=== PATIENT | female | born 2000 | race Two or more races ===

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

== ENCOUNTER → 2021-07-17 | Outpatient (CLI) | payer BC ==
--- NOTE | 2021-07-17 08:29 | US ---
EXAMINATION TYPE: US thyroid st tissue head/neck DATE OF EXAM: 07/17/2021 COMPARISON: NONE CLINICAL HISTORY: E04.9 Goiter. Neck swelling GLAND SIZE: Right Lobe: 4.5 x 1.3 x 1.5 cm Overall Parenchyma: homogenous Left Lobe: 4.0 x 1.1 x 1.4 cm Overall Parenchyma: homogeneous Isthmus Thickness: 0.2 cm NODULES RIGHT: # of nodules measured on right: 0 LEFT: # of nodules measured on left: 0 ISTHMUS: # of nodules measured in the isthmus: 0 Bilateral neck scanned, no evidence of lymphadenopathy. IMPRESSION: No distinct abnormality identified.
--- NOTE | 2021-07-17 08:33 | US ---
EXAMINATION TYPE: US abdomen complete DATE OF EXAM: 07/17/2021 COMPARISON: NONE CLINICAL HISTORY: R10.84 GENERALIZED ABD PAIN. Intermittent lower abdomen pain and N/V x couple month s EXAM MEASUREMENTS: Liver Length: 14.5 cm Gallbladder Wall: 0.2 cm CBD: 0.3 cm Spleen: 9.1 cm Right Kidney: 9.2 x 4.0 x 4.6 cm Left Kidney: 9.6 x 5.6 x 4.6 cm Pancreas: visualized portions wnl, limited by overlying midline bowel gas Liver: wnl Gallbladder: wnl Evidence for sonographic Mcgowan's sign: no CBD: visualized portions wnl, limited by overlying bowel gas Spleen: wnl Right Kidney: wnl Left Kidney: visualized portions wnl, limited by overlying bowel gas Upper IVC: wnl Abd Aorta: wnl The liver is homogenous. The intrahepatic portion of the IVC and proximal abdominal aorta are within normal limits. There is no evidence of cholelithiasis. Common bile duct is unremarkable. The visu alized portions of the pancreas are homogenous. The spleen is unremarkable. Kidneys are symmetric a nd free of hydronephrosis. No renal lesions are seen. IMPRESSION: No discrete abnormality appreciated.
== END | disposition home or self-care (01) ==
LOC: RADUSWWP 07:09
PROVIDERS: ATTEND Family Medicine
DX: E04.9 Nontoxic goiter, unspecified (principal); R10.84 Generalized abdominal pain; R10.30 Lower abdominal pain, unspecified
CPT/HCPCS: 76536; 76700

== ENCOUNTER 2022-07-05 18:03 | Inpatient (IN) | payer BC, OTHER ==
[2022-07-05] MEDS ORDERED: LIDOCAINE 0.5% (PF) 5 MG/ML (50 ML SDV) SQ PRN (18:43)
[2022-07-05] MEDS ORDERED: METHYLERGONOVINE 0.2 MG/ML 1 ML AMP IM PRN (18:43)
[2022-07-05] MEDS ORDERED: CARBOPROST TROMETHAMINE 250 MCG/ML 1 ML AMP IM PRN (18:43)
[2022-07-05] MEDS ORDERED: OXYTOCIN 10 UNIT/ML 1 ML VIAL IM PRN (18:43)
[2022-07-05] MEDS ORDERED: TERBUTALINE 1 MG/ML VIAL SQ PRN (18:43)
[2022-07-05] MEDS ORDERED: BUTORPHANOL 1 MG/ML 1 ML VIAL IV PRN (18:44)
[2022-07-05] MEDS: LACTATED RINGERS 1,000 ML IV SCH ×2 (19:44→22:54)
[2022-07-05 20:04] LABS: Basophils # (A) 0.1 k/uL (0-0.2); Basophils % (A) 1 %; Eosinophils # (A) 0.1 k/uL (0-0.7); Eosinophils % (A) 1 %; HCT 41.1 % (34.0-46.0); Lymphocytes # (A) 1.9 k/uL (1.0-4.8); Lymphocytes % (A) 25 %; MCH 32.4 pg (25.0-35.0); MCHC 34.1 g/dL (31.0-37.0); MCV 94.9 fL (80.0-100.0); Monocytes # (A) 0.4 k/uL (0-1.0); Monocytes % (A) 5 %; Neutrophils # (A) 5.2 k/uL (1.3-7.7); Neutrophils % (A) 67 %; Platelet Count 206 k/uL (150-450); RBC 4.33 m/uL (3.80-5.40); RDW 12.6 % (11.5-15.5); WBC 7.9 k/uL (3.8-10.6)
[2022-07-06] MEDS: LACTATED RINGERS 1,000 ML IV SCH (00:44)
--- NOTE | 2022-07-06 02:27 | P.HPOB ---
History of Present Illness H&P Date: 07/06/22 Chief Complaint: My water broke at home This is a 22-year-old female 1 para 0 EDC 07/07/2022 at 39-6/7 weeks' gestation. Patient presented with her water breaking left-sided home, clear fluid. Fetus is been active throughout the . She denies vaginal bleed ing. Past medical history significant for PCO OS. Past surgical history muscle biopsy, appendectomy. Current medications vitamins daily, baby aspirin daily. ALLERGIES none known. Family history significant for breast cancer. Social history patient has never been a smoker, she is , she is employed, former marijuana smoker, denies alcohol or tobacco use. history blood type is O+, rubella status immune. VDRL testing, hepatitis B surface antigen, HIV testing, urine culture, gonorrhea and chlamydia cultures, group B strep cultures all negative. A one-hour Glucola 107. On exam patient is 5 foot 2 inches, 146 pounds, blood pressure 126/88 on admission. The general physical exam is within normal limits. Patient was 1 cm on admission, currently completely dilated. heart tones are consistent with reactive NST. Uterine contractions are occurring every 2 minutes apart and an epidural has been placed per her request. Impression: 39-6/7 weeks intrauterine , active labor, all signs reassuring. Plan: Continue close maternal and surveillance. Anticipate normal spontaneous vaginal delivery. Past Medical History Additional Past Medical History / Comment(s): small leak in one of heart valves History of Any Multi-Drug Resistant Organisms: None Reported Past Surgical History: Appendectomy Additional Past Surgical History / Comment(s): Muscle biopsy in right thigh Past Anesthesia/Blood Transfusion Reactions: No Reported Reaction Additional Past Anesthesia/Blood Transfusion Reaction / Comment(s): has never had anesthesia Past Psychological History: No Psychological Hx Reported Smoking Status: Never smoker Past Alcohol Use History: None Reported Past Drug Use History: None Reported - Past Family History Mother Family Medical History: No Reported History Medications and Allergies Home Medications Medication Instructions Recorded Confirmed Type Aspirin [Adult Low Dose Aspirin EC] 81 mg PO DAILY 06/15/22 07/05/22 History Vit No.179/Iron/Folic 1 tab PO DAILY 06/15/22 07/05/22 History [ Tablet] Allergies Allergy/AdvReac Type Severity Reaction Status Date / Time No Known Allergies Allergy Verified 07/05/22 20:44 Exam Vital Signs Temp Pulse Resp BP Pulse Ox 07/05/22 18:07 97.0 F L 93 18 126/85 98 Intake and Output 07/05/22 07/05/22 07/06/22 14:59 22:59 06:59 Other: # Voids 1 Weight 66.224 kg See dictation under HPI please Results Result Diagrams: 07/05/22 19:45 Assessment and Plan Assessment: 39-6/7 weeks intrauterine , active labor. All signs reassuring. Plan: Continue close maternal and surveillance. Anticipate normal spontaneous vaginal delivery. Time with Patient: Less than 30
[2022-07-06] MEDS ORDERED: OXYTOCIN 30 UNITS/500 ML NS 30 UNIT in SALINE 1 500ML.BAG IV SCH (02:47)
[2022-07-06] MEDS ORDERED: diphenhydrAMINE 50 MG/ML 1 ML VIAL IVP PRN ×2 (03:07)
[2022-07-06] MEDS ORDERED: LANOLIN CREAM 5 GM TUBE TOPICAL PRN (03:07)
[2022-07-06] MEDS ORDERED: diphenhydrAMINE 50 MG CAP PO PRN (03:07)
[2022-07-06] MEDS ORDERED: ZOLPIDEM 5 MG TAB PO PRN (03:07)
[2022-07-06] MEDS ORDERED: HYDROCORTISONE 2.5% RECTAL CREAM 30 GM TUBE RECTAL PRN (03:07)
[2022-07-06] MEDS ORDERED: SIMETHICONE 80 MG CHEWABLE PO PRN (03:07)
[2022-07-06] MEDS ORDERED: BENZOCAINE/MENTHOL SPRAY 1 GM/SPRAY AEROSOL TOPICAL PRN (03:07)
[2022-07-06] MEDS ORDERED: diphenhydrAMINE 25 MG CAP PO PRN (03:07)
--- NOTE | 2022-07-06 03:07 | P.PROBDLV ---
Vaginal Delivery Note - . Vaginal Delivery Note: This is a 22-year-old 1 para 0 EDC 07/07/2022 at 39-6/7 weeks' gestation. Patient presented with spontaneous amniorrhexis which occurred at home, clear fluid. Fetus has been active throughout the . Please see dictated history and physical for details. Epidural was placed per her request. She progressed well through the first stage of labor, heart tones were reassuring throughout. Patient was judged to be completely dilated at 0151 hours and began the second stage of labor at that time. Ultimately the perineal body was prepped and draped in the usual sterile fashion. 's head delivered occiput anterior and he restituted accordingly. There was a nuchal cord 1 that was reduced on the perineal body. The left or anterior shoulder was gently delivered from underneath the pubic symphysis at which time the oropharynx, nasopharynx, and external nares were all bulb suctioned. Patient was officially delivered of a liveborn male infant at 0247 hours. Umbilical cord was doubly clamped and ligated, he was handed to waiting nurses for evaluation where scores of 8 and 9 at one and 5 minutes respectively were given. The placenta delivered spontaneously, it was inspected and noted to be intact with trivascular cord at 0252 hours. At this time the perineal body was redraped and the uterus was massaged. Careful inspection of the cervix, vagina, perineum, periurethral, and perirectal areas revealed a small first-degree perineal laceration. This was easily repaired in the usual fashion using 3-0 repeat suture. Excellent reapproximation was noted. Fundus is firm and in the midline, symmetric and 18 week size upon completion of delivery. Infant weighs 3185 g or 7 lbs. 0 oz. All sponge needle and instrument counts are correct. Patient is allowed to begin the bonding experience in the LDR. She is requesting circumcision for her infant son
[2022-07-06] MEDS ORDERED: ROPIVACAINE 100 MG, fentaNYL (PF). 200 MCG in SODIUM CHLORIDE 0.9% 76 ML EPIDURAL ONE (08:41)
[2022-07-06] MEDS: SENNOSIDES-DOCUSATE SODIUM 1 EACH TAB PO SCH ×2 (08:56→19:53)
[2022-07-06] MEDS: ACETAMINOPHEN TAB 325 MG TAB PO PRN ×3 (08:57→21:08)
[2022-07-06] MEDS: IBUPROFEN 600 MG TAB PO SCH ×3 (09:00→17:58)
[2022-07-07] MEDS: IBUPROFEN 600 MG TAB PO SCH (00:05)
[2022-07-07 07:02] LABS: Basophils # (A) 0.1 k/uL (0-0.2); Basophils % (A) 1 %; Eosinophils # (A) 0.1 k/uL (0-0.7); Eosinophils % (A) 2 %; HCT 38.3 % (34.0-46.0); HGB 13.1 gm/dL (11.4-16.0); Lymphocytes # (A) 2.6 k/uL (1.0-4.8); Lymphocytes % (A) 32 %; MCH 32.6 pg (25.0-35.0); MCHC 34.1 g/dL (31.0-37.0); MCV 95.6 fL (80.0-100.0); Mean Platelet Volume 8.6; Monocytes # (A) 0.3 k/uL (0-1.0); Monocytes % (A) 4 %; Neutrophils # (A) 4.8 k/uL (1.3-7.7); Neutrophils % (A) 59 %; Platelet Count 186 k/uL (150-450); RBC 4.01 m/uL (3.80-5.40); RDW 12.6 % (11.5-15.5); WBC 8.1 k/uL (3.8-10.6)
[2022-07-07 08:00] VITALS: BP 131/88; PULSE 84; RESP 16; TEMP 98.4
[2022-07-07] MEDS: SENNOSIDES-DOCUSATE SODIUM 1 EACH TAB PO SCH (08:10)
--- NOTE | 2022-07-07 09:09 | P.DS ---
Providers Date of admission: 07/05/22 18:49 Expected date of discharge: 07/07/22 Attending physician: Leela Moses Primary care physician: Stated None - Discharge Diagnosis(es) (1) Term Current Visit: Yes Status: Acute (2) SROM (spontaneous rupture of membranes) Current Visit: Yes Status: Acute (3) Active labor at term Current Visit: Yes Status: Acute Hospital Course: this is a 22-year-old 1 now para 1 that presented to labor and delivery at 39-6/7 weeks with complaints of spontaneous rupture of membranes. Patient noted fluid to be clear in nature. Patient has been receiving routine care which is been essentially uncomplicated. Infant did have a dilated renal pelvis, with testing be normal in nature. Multiple ultrasounds revealed good growth and no increase of the dilation. Patient was admitted to labor and delivery and progressed through labor eventually getting an epidural. Patient progressed to complete began pushing and had a normal spontaneous vaginal delivery of a viable male . weighing 7 lbs. 0 oz. Patient did sustain a small first-degree vaginal laceration which was repaired in the usual fashion with 3-0 Rapide. Patient has done well . On this day #1 she is ambulating and voiding without difficulty. She is tolerating a regular diet without nausea or vomiting. She states her pain is well-controlled. Her lochia is moderate. She is breast-feeding. She would like discharge home. Patient Condition at Discharge: Good Plan - Discharge Summary New Discharge Prescriptions: No Action Vit No.179/Iron/Folic [ Tablet] 1 tab PO DAILY Aspirin [Adult Low Dose Aspirin EC] 81 mg PO DAILY Discharge Medication List Aspirin [Adult Low Dose Aspirin EC] 81 mg PO DAILY 06/15/22 [History] Vit No.179/Iron/Folic [ Tablet] 1 tab PO DAILY 06/15/22 [History] Follow up Appointment(s)/Referral(s): Leela Moses DO [Doctor of Osteopathic Medicine] - 4 Weeks Patient Instructions/Handouts: Vaginal Delivery (DC), Vaginal Delivery (GEN) Activity/Diet/Wound Care/Special Instructions: patient expect moderate vaginal bleeding . [id number] ibuprofen 600 mg as needed for pain. Patient is to schedule a routine follow- up at 4 weeks . Should she have any concerns prior to this she is urged to call the office. She is counseled that no tub baths swimming or intercourse for 6 weeks . Discharge Disposition: HOME SELF-CARE
== END 2022-07-07 14:10 | disposition home or self-care (01) | DRG 807 ==
LOC: FBPOP 18:03 → 4FBP 18:49
PROVIDERS: ADMIT Obstetrics & Gynecology; ATTEND Obstetrics & Gynecology Obstetrics
PROC: 10E0XZZ Delivery of Products of Conception, External Approach (ICD-10-PCS; principal; 2022-07-06)
PROC: 0HQ9XZZ Repair Perineum Skin, External Approach (ICD-10-PCS; 2022-07-06)
PROC: 4A0HXCZ Measurement of Products of Conception, Cardiac Rate, External Approach (ICD-10-PCS; 2022-07-06)
DX: O42.92 Full-term premature rupture of membranes, unspecified as to length of time between rupture and onset of labor (principal); Z37.0 Single live birth; O69.81X0 Labor and delivery complicated by cord around neck, without compression, not applicable or unspecified; O99.284 Endocrine, nutritional and metabolic diseases complicating childbirth; E28.2 Polycystic ovarian syndrome; O70.0 First degree perineal laceration during delivery; Z3A.39 39 weeks gestation of pregnancy; Z79.82 Long term (current) use of aspirin; Z86.59 Personal history of other mental and behavioral disorders
CPT/HCPCS: 59025; 84112; 85025; 86850; 86900; 86901; 99213

== ENCOUNTER 2022-07-11 19:31 | Emergency (ER) | payer BC, OTHER ==
[2022-07-11 19:48] VITALS: TEMP 98
[2022-07-11] MEDS ORDERED: diphenhydrAMINE 50 MG/ML 1 ML VIAL IVP STA (20:08)
[2022-07-11] MEDS ORDERED: KETOROLAC 15 MG/ML 1 ML VIAL IVP STA (20:08)
[2022-07-11] MEDS ORDERED: SODIUM CHLORIDE 0.9% 1,000 ML IV STA (20:08)
[2022-07-11] MEDS ORDERED: METOCLOPRAMIDE 5 MG/ML 2 ML VIAL IVP STA ×2 (20:08→20:48)
[2022-07-11] MEDS ORDERED: CAFFEINE-SODIUM BENZOATE 500 MG in SODIUM CHLORIDE 0.9% 1,000 ML IVPB ONE (21:11)
--- NOTE | 2022-07-11 22:12 | ED ---
General Adult HPI - General Chief complaint: Headache Stated complaint: abn labs Time Seen by Provider: 07/11/22 19:55 Source: patient Mode of arrival: ambulatory Limitations: no limitations - History of Present Illness Initial comments: Patient is a 22-year-old female who presents to the emergency department with a chief complaint of headache. Patient had vaginal delivery on 07/06 Dr. Moses. Delivery went well without complication. Patient states she had an epidural during delivery. Since delivery she has endorsed a headache which ranges in severity. States laying down improves her pain. Has been taking Excedrin with some relief. Denies fever, chills, abdominal pain, nausea, vomiting. Denies history of migraines. - Related Data Home Medications Medication Instructions Recorded Confirmed Aspirin [Adult Low Dose Aspirin EC] 81 mg PO DAILY 06/15/22 07/05/22 Vit No.179/Iron/Folic 1 tab PO DAILY 06/15/22 07/05/22 [ Tablet] Allergies Allergy/AdvReac Type Severity Reaction Status Date / Time No Known Allergies Allergy Verified 07/11/22 19:48 Review of Systems ROS Statement: Those systems with pertinent positive or pertinent negative responses have been documented in the HPI. ROS Other: All systems not noted in ROS Statement are negative. Past Medical History Additional Past Medical History / Comment(s): small leak in one of heart valves History of Any Multi-Drug Resistant Organisms: None Reported Past Surgical History: Appendectomy Additional Past Surgical History / Comment(s): Muscle biopsy in right thigh Past Anesthesia/Blood Transfusion Reactions: No Reported Reaction Additional Past Anesthesia/Blood Transfusion Reaction / Comment(s): has never had anesthesia Past Psychological History: No Psychological Hx Reported Smoking Status: Never smoker Past Alcohol Use History: None Reported Past Drug Use History: None Reported - Past Family History Mother Family Medical History: No Reported History General Exam Limitations: no limitations General appearance: alert, in no apparent distress Head exam: Present: atraumatic, normocephalic, normal inspection Respiratory exam: Present: normal lung sounds bilaterally. Absent: respiratory distress, wheezes, rales, rhonchi, stridor Cardiovascular Exam: Present: regular rate, normal rhythm, normal heart sounds. Absent: systolic murmur, diastolic murmur, rubs, gallop, clicks GI/Abdominal exam: Present: soft, normal bowel sounds. Absent: distended, tenderness, guarding, rebound, rigid Neurological exam: Present: alert, oriented X3, CN II-XII intact Psychiatric exam: Present: normal affect, normal mood Skin exam: Present: warm, dry, intact, normal color. Absent: rash Course Vital Signs 07/11/22 07/11/22 19:44 23:22 Temperature 98.0 F Pulse Rate 79 64 Respiratory 16 19 Rate Blood Pressure 135/87 121/90 O2 Sat by Pulse 96 99 Oximetry Medical Decision Making - Medical Decision Making This is a 22-year-old female who presents with headache. Patient well-appearing. Vitals stable. Based on characteristics of headache after epidural this does appear to be a postdural puncture headache. Case discussed with Dr. Lara from anesthesia who evaluated patient in the emergency department. With tolerable headache with [address] Lara does recommend conservative treatment rather than blood patch procedure as this condition a self-limiting. Patient agreeable. She received a headache cocktail which improved her pain significantly. We discussed conservative treatment in detail. Case discussed with Dr. Moses who is agreeable with plan. Patient to follow-up with Dr. Moses. Dr. Stafford is my attending. Disposition Clinical Impression: Post-dural puncture headache Disposition: HOME SELF-CARE Condition: Good Instructions (If sedation given, give patient instructions): Acute Headache (ED) Additional Instructions: Increase water intake. Continue to take Excedrin as directed for headache. Excedrin does have caffeine in it but it is okay to drink an additional cup of coffee or other caffeine a day while headache persists. Follow-up with [facility] at 4 week follow-up or earlier if warranted. Return to the emergency department if you experience new, concerning, or worsening symptoms. Is patient prescribed a controlled substance at d/c from ED?: No Referrals: None,Stated [Primary Care Provider] - 1-2 days Time of Disposition: 22:12
[2022-07-11 23:23] VITALS: BP 121/90; PULSE 64; RESP 19
== END 2022-07-11 23:23 | disposition home or self-care (01) ==
LOC: EC 19:31
DX: G97.1 Other reaction to spinal and lumbar puncture (principal)
CPT/HCPCS: 99283; 96365; 96361; 96375; J1200; J2765; J1885

== ENCOUNTER 2024-06-12 23:00 | Inpatient (IN) | payer BC, OTHER | END 2024-06-14 13:30 | disposition home or self-care (01) | DRG 807 | LOC: 4FBP 23:00 → UNDOADMIN 06-13 00:55 → UNDODISIN 06-14 12:34 | PROVIDERS: ADMIT Obstetrics & Gynecology Obstetrics; ATTEND Obstetrics & Gynecology Obstetrics | PROC: 10E0XZZ Delivery of Products of Conception, External Approach (ICD-10-PCS; principal; 2024-06-12) | PROC: 0HQ9XZZ Repair Perineum Skin, External Approach (ICD-10-PCS; 2024-06-12) | DX: O70.0 First degree perineal laceration during delivery (principal); Z37.0 Single live birth; Z3A.39 39 weeks gestation of pregnancy ==

== ENCOUNTER 2025-01-18 17:25 | Emergency (ER) | payer BC, OTHER ==
--- NOTE | 2025-01-18 17:59 | ED ---
Nausea/Vomiting/Diarrhea HPI - General Source: patient, RN notes reviewed Mode of arrival: ambulatory Limitations: no limitations <Samuel Perea - Last Filed: 01/18/25 17:56> - General Source: patient, family, RN notes reviewed <Geetha Alcala - Last Filed: 01/19/25 00:32> - General Chief complaint: Nausea/Vomiting/Diarrhea Stated complaint: Vomiting,weakness Time Seen by Provider: 01/18/25 17:39 - History of Present Illness Initial comments: Quick note: This is a 24-year-old female presenting for sick symptoms since 1200 today. Patient endorses initial symptoms of nausea/vomiting followed by lightheadedness, headache and tingling/heaviness in her hands and legs. (Samuel Perea) 24-year-old female presenting for vomiting x 8 hours. States around noon today she began to nausea/vomiting. Several hours later, she suddenly began to feel whole body numbness, weakness and heaviness in her legs. States the symptoms lasted about a minute and she experienced the symptoms again in the waiting room. Denies chest pain or heart palpitations. States she has a history of syncope and a "leaky heart valve". Denies abdominal pain, urinary symptoms, fever, cough, nasal congestion, headache. Patient was treated for urinary tract infection 2 weeks ago, completed course of antibiotics. She then was experiencing low back pain and was treated with a steroid injection by urgent care last week. (Geetha Alcala) - Related Data Home Medications Medication Instructions Recorded Confirmed Aspirin [Adult Low Dose Aspirin EC] 81 mg PO DAILY 06/15/22 07/05/22 Vit No.179/Iron/Folic 1 tab PO DAILY 06/15/22 07/05/22 [ Tablet] Allergies Allergy/AdvReac Type Severity Reaction Status Date / Time No Known Allergies Allergy Verified 01/18/25 17:43 Review of Systems ROS Other: All systems not noted in ROS Statement are negative. <Samuel Perea - Last Filed: 01/18/25 17:56> ROS Other: All systems not noted in ROS Statement are negative. <Geetha Alcala - Last Filed: 01/19/25 00:32> ROS Statement: Those systems with pertinent positive or pertinent negative responses have been documented in the HPI. Past Medical History Additional Past Medical History / Comment(s): small leak in one of heart valves History of Any Multi-Drug Resistant Organisms: None Reported Past Surgical History: Appendectomy Additional Past Surgical History / Comment(s): Muscle biopsy in right thigh Past Anesthesia/Blood Transfusion Reactions: No Reported Reaction Additional Past Anesthesia/Blood Transfusion Reaction / Comment(s): has never had anesthesia Past Psychological History: No Psychological Hx Reported Smoking Status: Never smoker Past Alcohol Use History: None Reported Past Drug Use History: None Reported - Past Family History Mother Family Medical History: No Reported History <Samuel Perea - Last Filed: 01/18/25 17:56> General Exam Limitations: no limitations <Samuel Perea - Last Filed: 01/18/25 17:56> General appearance: alert, in no apparent distress Head exam: Present: atraumatic, normocephalic, normal inspection Eye exam: Present: normal appearance, PERRL, EOMI. Absent: scleral icterus, conjunctival injection, periorbital swelling ENT exam: Present: normal exam, mucous membranes moist Neck exam: Present: normal inspection. Absent: tenderness, meningismus, lymphadenopathy Respiratory exam: Present: normal lung sounds bilaterally. Absent: respiratory distress, wheezes, rales, rhonchi, stridor Cardiovascular Exam: Present: normal rhythm, tachycardia, normal heart sounds. Absent: systolic murmur, diastolic murmur, rubs, gallop, clicks GI/Abdominal exam: Present: soft, normal bowel sounds. Absent: distended, tenderness, guarding, rebound, rigid Neurological exam: Present: alert, oriented X3, CN II-XII intact Psychiatric exam: Present: normal affect, normal mood Skin exam: Present: warm, dry, intact, normal color. Absent: rash <Geetha Alcala - Last Filed: 01/19/25 00:32> - General Exam Comments Initial Comments: Visual Physical Exam Vital signs reviewed General: Well-appearing, nontoxic. Patient appears distressed and tearful Head: Normocephalic, atraumatic Eyes: PERRLA, EOMI ENT: Airway patent Chest: Nonlabored breathing Skin: No visual rash, normal skin tone Neuro: Alert and oriented 3 Musculoskeletal: No gross abnormalities (Samuel Perea) Course Vital Signs 01/18/25 01/18/25 01/18/25 17:39 19:00 19:21 Temperature 98.1 F Pulse Rate 127 H 164 H 135 H Respiratory 20 40 H 18 Rate Blood Pressure 127/86 127/96 109/90 O2 Sat by Pulse 96 96 98 Oximetry 01/18/25 01/18/25 22:17 23:57 Temperature 99.5 F 98.9 F Pulse Rate 115 H 107 H Respiratory 18 18 Rate Blood Pressure 109/75 O2 Sat by Pulse 98 98 Oximetry Medical Decision Making <Samuel Perea - Last Filed: 01/18/25 17:56> - Lab Data Result diagrams: 01/18/25 17:49 01/18/25 17:49 - EKG Data -: EKG Interpreted by Me <Geetha Alcala - Last Filed: 01/19/25 00:32> - Medical Decision Making I completed the quick note portion of this chart signed JOSE Lee (Samuel Preea) Was pt. sent in by a medical professional or institution (PRITESH Saravia, AUTOMOTIVE MACHINIST, urgent care, hospital, or snf...) When possible be specific @ -No Did you speak to anyone other than the patient for history (EMS, parent, family, police, friend...)? What history was obtained from this source @ -None Did you review nursing and triage notes (agree or disagree)? Why? @ -I reviewed and agree with nursing and triage notes Were old charts reviewed (outside hosp., previous admission, EMS record, old EKG, old radiological studies, urgent care reports/EKG's, snf records)? Report findings @ -No old charts were reviewed Differential Diagnosis (chest pain, altered mental status, abdominal pain women, abdominal pain men, vaginal bleeding, weakness, fever, dyspnea, syncope, headache, dizziness, GI bleed, back pain, seizure, CVA, palpatations, mental health, musculoskeletal)? @ -Differential Weakness: Hypoglycemia, shock, sepsis, hyponatremia, anemia, infection, NE, ETOH, adverse medicine reaction, overdose, stroke, this is not meant to be an all-inclusive list. EKG interpreted by me (3pts min.). @ -As above X-rays interpreted by me (1pt min.). @ -Chest x-ray reveals no acute process CT interpreted by me (1pt min.). @ -None done U/S interpreted by me (1pt. min.). @ -None done What testing was considered but not performed or refused? (CT, X-rays, U/S, labs)? Why? @ -None What meds were considered but not given or refused? Why? @ -None Did you discuss the management of the patient with other professionals (professionals i.e. , PA, AUTOMOTIVE MACHINIST, lab, RT, psych nurse, renal social worker, milling machinist, teacher, chief safety officer, case briefer)? Give summary @ -No Was smoking cessation discussed for >3mins.? @ -No Was critical care preformed (if so, how long)? @ -No Were there social determinants of health that impacted care today? How? (Homelessness, low income, unemployed, alcoholism, drug addiction, transportation, low edu. Level, literacy, decrease access to med. care, correction, rehab)? @ -No Was there de-escalation of care discussed even if they declined (Discuss DNR or withdrawal of care, Hospice)? DNR status @ -No What co-morbidities impacted this encounter? (DM, HTN, Smoking, COPD, CAD, Cancer, CVA, ARF, Chemo, Hep., AIDS, mental health diagnosis, sleep apnea, morbid obesity)? @ -None Was patient admitted / discharged? Hospital course, mention meds given and route, prescriptions, significant lab abnormalities, going to OR and other pertinent info. @ - discharge. 24-year-old female presenting for nausea/vomiting with whole body weakness/numbness. Denies chest pain or shortness of breath. Patient is tachycardic upon arrival to the ER, otherwise vital signs within acceptable limits. Neuro examination is unremarkable. Abdomen is soft and nontender. Patient is provided with IV fluids, Ativan, and Zofran in the waiting room. EKG reveals sinus tachycardia with no ST changes. Lab work remarkable for leukocytosis of 15.2 likely reactive, CO2 20, BUN 19, lactic acidosis of 2.8. D-dimer and troponin negative. Urinalysis reveals 2+ ketones otherwise contaminated sample not overly indicative of urinary tract infection. Results discussed with patient. Patient was then provided with Tylenol and Toradol. Upon reevaluation, heart rate decreases to 107 and temperature decreases to 98.9. I suspect tachycardia is due to fever. Symptoms are likely viral in nature. Appropriate return precautions and follow-up care discussed. Patient is tolerating p.o. well at time of discharge. Case was discussed with my ED attending Dr. Montalvo. Undiagnosed new problem with uncertain prognosis? @ -No Drug Therapy requiring intensive monitoring for toxicity (Heparin, Nitro, Insulin, Cardizem)? @ -No Were any procedures done? @ -No Diagnosis/symptom? @ -Viral gastroenteritis Acute, or Chronic, or Acute on Chronic? @ -Acute Uncomplicated (without systemic symptoms) or Complicated (systemic symptoms)? @ -Complicated Side effects of treatment? @ -No Exacerbation, Progression, or Severe Exacerbation? @ -No Poses a threat to life or bodily function? How? (Chest pain, USA, NE, pneumonia, PE, COPD, DKA, ARF, appy, cholecystitis, CVA, Diverticulitis, Homicidal, Suicidal, threat to staff... and all critical care pts) @ -Not at this time (Geetha Alcala) - Lab Data Lab Results 01/18/25 01/18/25 01/18/25 Range/Units 17:49 17:49 17:49 WBC 15.2 H (3.8-10.6) k/uL RBC 5.66 H (3.80-5.40) m/uL Hgb 17.2 H (11.4-16.0) gm/dL Hct 52.1 H (34.0-46.0) % MCV 92.1 (80.0-100.0) fL MCH 30.5 (25.0-35.0) pg MCHC 33.1 (31.0-37.0) g/dL RDW 12.2 (11.5-15.5) % Plt Count 311 (150-450) k/uL MPV 8.3 Neutrophils % 88 % Lymphocytes % 8 % Monocytes % 3 % Eosinophils % 1 % Basophils % 0 % Neutrophils # 13.3 H (1.3-7.7) k/uL Lymphocytes # 1.2 (1.0-4.8) k/uL Monocytes # 0.4 (0-1.0) k/uL Eosinophils # 0.1 (0-0.7) k/uL Basophils # 0.0 (0-0.2) k/uL D-Dimer (<0.60) mg/L FEU Sodium 139 (137-145) mmol/L Potassium 4.4 (3.5-5.1) mmol/L Chloride 102 (98-107) mmol/L Carbon Dioxide 20 L (22-30) mmol/L Anion Gap 17 mmol/L BUN 19 H (7-17) mg/dL Creatinine 0.68 (0.52-1.04) mg/dL Est GFR (CKD-EPI)AfAm >90 (>60 ml/min/1.73 sqM) Est GFR (CKD-EPI)NonAf >90 (>60 ml/min/1.73 sqM) Glucose 124 H (74-99) mg/dL Lactic Ac Sepsis Rflx Plasma Lactic Acid Samuel 2.8 H* (0.7-2.0) mmol/L Calcium 10.1 (8.4-10.2) mg/dL Total Bilirubin 1.3 (0.2-1.3) mg/dL AST 27 (14-36) U/L ALT 30 (4-34) U/L Alkaline Phosphatase 101 (38-126) U/L Troponin I (0.000-0.034) ng/mL Total Protein 8.5 H (6.3-8.2) g/dL Albumin 5.3 H (3.5-5.0) g/dL Lipase 81 (23-300) U/L Urine Color Urine Appearance (Clear) Urine pH (5.0-8.0) Ur Specific [place] (1.001-1.035) Urine Protein (Negative) Urine Glucose (UA) (Negative) Urine Ketones (Negative) Urine Blood (Negative) Urine Nitrite (Negative) Urine Bilirubin (Negative) Urine Urobilinogen (<2.0) mg/dL Ur Leukocyte Esterase (Negative) Urine RBC (0-5) /hpf Urine WBC (0-5) /hpf Ur Squamous Epith Cells (0-4) /hpf Urine Bacteria (None) /hpf Hyaline Casts (0-2) /lpf Urine Mucus (None) /hpf Urine HCG, Qual (Not Detectd) Influenza Type A (PCR) (Not Detectd) Influenza Type B (PCR) (Not Detectd) RSV (PCR) (Not Detectd) SARS-CoV-2 (PCR) (Not Detectd) 01/18/25 01/18/25 01/18/25 Range/Units 17:49 18:20 18:53 WBC (3.8-10.6) k/uL RBC (3.80-5.40) m/uL Hgb (11.4-16.0) gm/dL Hct (34.0-46.0) % MCV (80.0-100.0) fL MCH (25.0-35.0) pg MCHC (31.0-37.0) g/dL RDW (11.5-15.5) % Plt Count (150-450) k/uL MPV Neutrophils % % Lymphocytes % % Monocytes % % Eosinophils % % Basophils % % Neutrophils # (1.3-7.7) k/uL Lymphocytes # (1.0-4.8) k/uL Monocytes # (0-1.0) k/uL Eosinophils # (0-0.7) k/uL Basophils # (0-0.2) k/uL D-Dimer (<0.60) mg/L FEU Sodium (137-145) mmol/L Potassium (3.5-5.1) mmol/L Chloride (98-107) mmol/L Carbon Dioxide (22-30) mmol/L Anion Gap mmol/L BUN (7-17) mg/dL Creatinine (0.52-1.04) mg/dL Est GFR (CKD-EPI)AfAm (>60 ml/min/1.73 sqM) Est GFR (CKD-EPI)NonAf (>60 ml/min/1.73 sqM) Glucose (74-99) mg/dL Lactic Ac Sepsis Rflx Y Plasma Lactic Acid Samuel (0.7-2.0) mmol/L Calcium (8.4-10.2) mg/dL Total Bilirubin (0.2-1.3) mg/dL AST (14-36) U/L ALT (4-34) U/L Alkaline Phosphatase (38-126) U/L Troponin I (0.000-0.034) ng/mL Total Protein (6.3-8.2) g/dL Albumin (3.5-5.0) g/dL Lipase (23-300) U/L Urine Color Yellow Urine Appearance Cloudy H (Clear) Urine pH 6.0 (5.0-8.0) Ur Specific [place] 1.038 H (1.001-1.035) Urine Protein 1+ H (Negative) Urine Glucose (UA) Negative (Negative) Urine Ketones 2+ H (Negative) Urine Blood Small H (Negative) Urine Nitrite Negative (Negative) Urine Bilirubin Negative (Negative) Urine Urobilinogen <2.0 (<2.0) mg/dL Ur Leukocyte Esterase Small H (Negative) Urine RBC <1 (0-5) /hpf Urine WBC 10 H (0-5) /hpf Ur Squamous Epith Cells 5 H (0-4) /hpf Urine Bacteria Rare H (None) /hpf Hyaline Casts 1 (0-2) /lpf Urine Mucus Few H (None) /hpf Urine HCG, Qual (Not Detectd) Influenza Type A (PCR) Not Detected (Not Detectd) Influenza Type B (PCR) Not Detected (Not Detectd) RSV (PCR) Not Detected (Not Detectd) SARS-CoV-2 (PCR) Not Detected (Not Detectd) 01/18/25 01/18/25 01/18/25 Range/Units 18:53 21:15 22:09 WBC (3.8-10.6) k/uL RBC (3.80-5.40) m/uL Hgb (11.4-16.0) gm/dL Hct (34.0-46.0) % MCV (80.0-100.0) fL MCH (25.0-35.0) pg MCHC (31.0-37.0) g/dL RDW (11.5-15.5) % Plt Count (150-450) k/uL MPV Neutrophils % % Lymphocytes % % Monocytes % % Eosinophils % % Basophils % % Neutrophils # (1.3-7.7) k/uL Lymphocytes # (1.0-4.8) k/uL Monocytes # (0-1.0) k/uL Eosinophils # (0-0.7) k/uL Basophils # (0-0.2) k/uL D-Dimer (<0.60) mg/L FEU Sodium (137-145) mmol/L Potassium (3.5-5.1) mmol/L Chloride (98-107) mmol/L Carbon Dioxide (22-30) mmol/L Anion Gap mmol/L BUN (7-17) mg/dL Creatinine (0.52-1.04) mg/dL Est GFR (CKD-EPI)AfAm (>60 ml/min/1.73 sqM) Est GFR (CKD-EPI)NonAf (>60 ml/min/1.73 sqM) Glucose (74-99) mg/dL Lactic Ac Sepsis Rflx Plasma Lactic Acid Samuel 1.1 (0.7-2.0) mmol/L Calcium (8.4-10.2) mg/dL Total Bilirubin (0.2-1.3) mg/dL AST (14-36) U/L ALT (4-34) U/L Alkaline Phosphatase (38-126) U/L Troponin I <0.012 (0.000-0.034) ng/mL Total Protein (6.3-8.2) g/dL Albumin (3.5-5.0) g/dL Lipase (23-300) U/L Urine Color Urine Appearance (Clear) Urine pH (5.0-8.0) Ur Specific [place] (1.001-1.035) Urine Protein (Negative) Urine Glucose (UA) (Negative) Urine Ketones (Negative) Urine Blood (Negative) Urine Nitrite (Negative) Urine Bilirubin (Negative) Urine Urobilinogen (<2.0) mg/dL Ur Leukocyte Esterase (Negative) Urine RBC (0-5) /hpf Urine WBC (0-5) /hpf Ur Squamous Epith Cells (0-4) /hpf Urine Bacteria (None) /hpf Hyaline Casts (0-2) /lpf Urine Mucus (None) /hpf Urine HCG, Qual Not Detected (Not Detectd) Influenza Type A (PCR) (Not Detectd) Influenza Type B (PCR) (Not Detectd) RSV (PCR) (Not Detectd) SARS-CoV-2 (PCR) (Not Detectd) 01/18/25 Range/Units 22:09 WBC (3.8-10.6) k/uL RBC (3.80-5.40) m/uL Hgb (11.4-16.0) gm/dL Hct (34.0-46.0) % MCV (80.0-100.0) fL MCH (25.0-35.0) pg MCHC (31.0-37.0) g/dL RDW (11.5-15.5) % Plt Count (150-450) k/uL MPV Neutrophils % % Lymphocytes % % Monocytes % % Eosinophils % % Basophils % % Neutrophils # (1.3-7.7) k/uL Lymphocytes # (1.0-4.8) k/uL Monocytes # (0-1.0) k/uL Eosinophils # (0-0.7) k/uL Basophils # (0-0.2) k/uL D-Dimer 0.47 (<0.60) mg/L FEU Sodium (137-145) mmol/L Potassium (3.5-5.1) mmol/L Chloride (98-107) mmol/L Carbon Dioxide (22-30) mmol/L Anion Gap mmol/L BUN (7-17) mg/dL Creatinine (0.52-1.04) mg/dL Est GFR (CKD-EPI)AfAm (>60 ml/min/1.73 sqM) Est GFR (CKD-EPI)NonAf (>60 ml/min/1.73 sqM) Glucose (74-99) mg/dL Lactic Ac Sepsis Rflx Plasma Lactic Acid Samuel (0.7-2.0) mmol/L Calcium (8.4-10.2) mg/dL Total Bilirubin (0.2-1.3) mg/dL AST (14-36) U/L ALT (4-34) U/L Alkaline Phosphatase (38-126) U/L Troponin I (0.000-0.034) ng/mL Total Protein (6.3-8.2) g/dL Albumin (3.5-5.0) g/dL Lipase (23-300) U/L Urine Color Urine Appearance (Clear) Urine pH (5.0-8.0) Ur Specific [place] (1.001-1.035) Urine Protein (Negative) Urine Glucose (UA) (Negative) Urine Ketones (Negative) Urine Blood (Negative) Urine Nitrite (Negative) Urine Bilirubin (Negative) Urine Urobilinogen (<2.0) mg/dL Ur Leukocyte Esterase (Negative) Urine RBC (0-5) /hpf Urine WBC (0-5) /hpf Ur Squamous Epith Cells (0-4) /hpf Urine Bacteria (None) /hpf Hyaline Casts (0-2) /lpf Urine Mucus (None) /hpf Urine HCG, Qual (Not Detectd) Influenza Type A (PCR) (Not Detectd) Influenza Type B (PCR) (Not Detectd) RSV (PCR) (Not Detectd) SARS-CoV-2 (PCR) (Not Detectd) - EKG Data EKG Comments: EKG reveals sinus tachycardia with ventricular rate 136 bpm, parable 128, QRS duration 71, QT/QTc 330/410 (Geetha Alcala) Disposition <Samuel Perea - Last Filed: 01/18/25 17:56> Is patient prescribed a controlled substance at d/c from ED?: No Time of Disposition: 00:25 <Geetha Alcala - Last Filed: 01/19/25 00:32> Clinical Impression: Viral gastroenteritis Disposition: HOME SELF-CARE Condition: Stable Instructions (If sedation given, give patient instructions): Gastroenteritis (ED) Additional Instructions: Please return to the Emergency Department if symptoms worsen or any other concerns. Referrals: None,Stated [Primary Care Provider] - 1-2 days
[2025-01-18 18:15] LABS: Basophils % (A) 0 %; Eosinophils # (A) 0.1 k/uL (0-0.7); Eosinophils % (A) 1 %; HCT 52.1 % (34.0-46.0); HGB 17.2 gm/dL (11.4-16.0); Lymphocytes # (A) 1.2 k/uL (1.0-4.8); Lymphocytes % (A) 8 %; MCH 30.5 pg (25.0-35.0); MCHC 33.1 g/dL (31.0-37.0); MCV 92.1 fL (80.0-100.0); Mean Platelet Volume 8.3; Monocytes # (A) 0.4 k/uL (0-1.0); Monocytes % (A) 3 %; Neutrophils # (A) 13.3 k/uL (1.3-7.7); Neutrophils % (A) 88 %; Platelet Count 311 k/uL (150-450); RBC 5.66 m/uL (3.80-5.40); RDW 12.2 % (11.5-15.5); WBC 15.2 k/uL (3.8-10.6)
[2025-01-18 18:17] LABS: ALT 30 U/L (4-34); AST 27 U/L (14-36); African American GFR (CKD) >90 (>60 ml/min/1.73 sqM); Albumin 5.3 g/dL (3.5-5.0); Alkaline Phosphatase 101 U/L (38-126); Anion Gap 17 mmol/L; Blood Urea Nitrogen 19 mg/dL (7-17); Calcium 10.1 mg/dL (8.4-10.2); Carbon Dioxide 20 mmol/L (22-30); Chloride 102 mmol/L (98-107); Glucose 124 mg/dL (74-99); Lipase 81 U/L (23-300); Non-African American GFR(CKD) >90 (>60 ml/min/1.73 sqM); Potassium 4.4 mmol/L (3.5-5.1); Sodium 139 mmol/L (137-145); Total Bilirubin 1.3 mg/dL (0.2-1.3); Total Protein 8.5 g/dL (6.3-8.2)
[2025-01-18 18:40] LABS: Influenza A Not Detected (Not Detectd); Influenza B Not Detected (Not Detectd); RSV Not Detected (Not Detectd)
[2025-01-18] MEDS: SODIUM CHLORIDE 0.9% 1,000 ML IV STA (19:18)
[2025-01-18] MEDS: SODIUM CHLORIDE 0.9% 1,000 ML IV ONE (19:18)
[2025-01-18] MEDS: ONDANSETRON 4 MG/2 ML VIAL IVP STA (19:18)
[2025-01-18] MEDS: LORazepam 2 MG/ML INJ IV PRN (19:19)
[2025-01-18 19:23] VITALS: RESP 18
[2025-01-18 19:26] LABS: Appearance,Urine Cloudy (Clear); Bacteria,Urine Rare /hpf; Bilirubin,Urine Negative (Negative); Blood,Urine Small (Negative); Color,Urine Yellow; Glucose,Urine (UA) Negative (Negative); Hyaline Casts,Urine 1 /lpf (0-2); Ketones,Urine 2+ (Negative); Leukocyte Esterase,Urine Small (Negative); Mucus,Urine Few /hpf; Nitrite,Urine Negative (Negative); Protein,Urine 1+ (Negative); RBC,Urine <1 /hpf (0-5); Specific Gravity,Urine 1.038 (1.001-1.035); Squamous Epithelial Cell,Urine 5 /hpf (0-4); Urobilinogen,Urine <2.0 mg/dL (<2.0); WBC,Urine 10 /hpf (0-5)
--- NOTE | 2025-01-18 20:46 | XR ---
EXAMINATION TYPE: XR chest 2V DATE OF EXAM: 01/18/2025 8:35 PM COMPARISON: Chest radiographs from 01/18/2025. CLINICAL INDICATION: Female, 24 years old with history of shortness of breath; TECHNIQUE: XR chest 2V Frontal and lateral views of the chest. FINDINGS: Lungs/Pleura: There is no evidence of pleural effusion, focal consolidation, or pneumothorax. Pulmonary vascularity: Unremarkable. Heart/mediastinum: Cardiomediastinal silhouette is unremarkable. Musculoskeletal: No acute osseous pathology. IMPRESSION: No acute cardiopulmonary disease/process. [facility], , 01/18/2025 8:44 PM
[2025-01-18] MEDS: ACETAMINOPHEN TAB 500 MG TAB PO STA (23:28)
[2025-01-18] MEDS: KETOROLAC 15 MG/ML 1 ML VIAL IVP STA (23:29)
[2025-01-18] MEDS: SODIUM CHLORIDE 0.9% 500 ML 500 ML IV STA (23:57)
[2025-01-19 00:51] VITALS: BP 103/69; PULSE 101; TEMP 97.9
== END 2025-01-19 00:54 | disposition home or self-care (01) ==
LOC: EC 17:25
DX: A08.4 Viral intestinal infection, unspecified (principal); R00.0 Tachycardia, unspecified
CPT/HCPCS: 36415; 93005; 85379; 80053; 83605; 83690; 84484; 85025; 81001; 81025; 87636; 71046; 99284; 96374; 96375 ×2; 96361 ×6; J2060; J2405; J1885